=== PATIENT | male | born 1945 ===

== ENCOUNTER → 2017-10-05 | Outpatient (CLI) | payer MEDICARE, BC ==
--- NOTE | 2017-10-05 09:21 | RADIOLOGY REPORT (SQ) ---
EXAM DESCRIPTION: MODESTAIE SWALLOW COMPLETED DATE/TIME: 10/05/2017 8:26 am REASON FOR STUDY: DYSPHAGIA (R13.10) R13.10 DYSPHAGIA, UNSPECIFIED COMPARISON: None. TECHNIQUE: Videofluoroscopic swallowing examination was performed in conjunction with speech patholo gy. Videofluoroscopic imaging was obtained and reviewed and these are the findings: RADIATION DOSE: Fluoro time 1.29 minutes 1 images saved to PACS. LIMITATIONS: None FINDINGS: The patient was brought into the fluoro room and placed upright on a modified barium swall ow chair. The patient was then given multiple consistencies mixed with barium to swallow under live fluoroscopic video guidance. According to the Speech Pathologist there was flash laryngeal penetrati on with thin barium. No aspiration identified. All other consistencies swallowed without incident. Please refer to the speech pathology report for further details. IMPRESSION: FLASH LARYNGEAL PENETRATION WITHOUT ASPIRATION SEEN WITH THIN BARIUMPLEASE SEE SPEECH PA THOLOGIST REPORT FOR OTHER FINDINGS AND RECOMMENDATIONS. COMMENT: None Quality ID [id number]: Final reports for procedures using fluoroscopy that document radiation exposure rossy jeffrey, or exposure time and number of fluorographic images (if radiation exposure indices are not avail able) TECHNICAL DOCUMENTATION: JOB ID: [id number] [employer]- All Rights Reserved Reading location - IP/workstation name: [email or web address] [id number]
--- NOTE | 2017-10-05 09:39 | ST Modified Barium Swallow ---
Recommendation - Recommendations Recommendations: Recommend chin tuck with medications. No skilled intervention indicated. Medical Diagnoses - Medical Diagnoses Medical Diagnosis Description & ICD-10 Code(s): dyaphagia R13.10 Other Medical Diagnoses/Co-Morbidities: per patient report: reflux, arthritis, scoliosis - ICD-10 Tx Diagnosis Coding (1) Acid reflux ICD-10 Code(s): K21.9 - GASTRO-ESOPHAGEAL REFLUX DISEASE WITHOUT ESOPHAGITIS (2) Arthritis ICD-10 Code(s): M19.90 - UNSPECIFIED OSTEOARTHRITIS, UNSPECIFIED SITE ST Modified Barium Swallow - General Date: 10/05/17 Referring Physician: Dr. Boateng Risks/Precautions: None Reason for Referral: dysphagia - History History obtained from: Patient, Spouse -: Medical - Patient reports no recent pneumonias, no CVAs, and no respiratory issues. He does report that he has reflux, for which he takes medication. He reports that he feels that medications "lodge in the back of my throat". He also reports belching, with food particles coming up with this. He also reports increased coughing when he is lying down to sleep at night, even if he is elevated. Medications: unable to give complete list, stated he takes omeprazole. Allergies: none reported - Functional Status Prior Functional Status: INDEPENDENT: feeding - independent Current Functional Limitations: feeding - Subjective Patient/caregiver goal(s): safe swallow Cognitive-Linguistic Function: WNL Speech Intelligibility: WNL Current Nutritional Means: PO Current PO diet: Regular Current symptoms: Coughing, c/o Globus sensation Pain: Patient reports, 0/5 - Objective Assessment: Upright, Left Lateral - Food Trials Used Food trials used: Thin liquids, Pureed, Regular, Other - barium tablet - Oral-Motor Skills Dentition: Partial, Dentures-Upper - Assessment Oral prep: Normal Labial closure: Adequate Leakage: None Mastication: Adequate Oral stage: Normal for this Procedure - Pharyngeal Stage Initiation of Pharyngeal Stage Reflex: Normal Decreased laryngeal elevation: No Reduced Velopharyngeal Closure: no Reduced pressure generation: Yes reduced tongue-based retraction: No Pre-swallow pooling in valleculae: None Pre-Swallow pooling in pyriforms: None Reduced Thyro-Hyoid approximation: No Reduced epiglottic excursion: No Multiple Swallows with: Cleared w/ Liquid Assist Post-swallow residulas vallecular: Mild Post-Swallow residuals in pyriforms: Mild Reduced Cricopharyngeal opening: No - Fall Risk Assessment Medications/Conditions that increase fall risks include: Antidepressants, sedatives, anti-arrhythmic, diuretic, benzodiazipenes, neuroleptics. BP regulation problems, cardiac problems, balance or gait deficits, neurological problems. Fall Risk Actions Taken: No action needed - Behavioral Observations During evaluation process patient: was pleasant, was cooperative, able to answer questions - Treatment / Educational Needs: Treatment/Education Needs: Treatment consisted of patient education on the role of the Speech Pathologist. Patient's plan of care and golas were communicated as well as scheduling and attendance policies. Recommendations for initial home program were shared. Patient demonstrated understanding and verbalized agreement. - Impression/Summary Laryngeal Penetration: Yes, Flash Consistency: Thin Tracheal Aspiration: no Compesatory strategies: liquid wash, chin tuck with medications Patient presents with: Pharyngeal stage dysph., Mild-Moderate Risk of Aspiration: Mild Risk of nutritional compromise: None Evaluation and Findings: Patient presents with functional swallowing mechanism for all textures. Residue seen post swallow for solid trials, cleared with liquid wash. Some penetration of thin liquids seen, but redirected easily. Barium tablet trialed as patient complains of medications "getting stuck", tablet moved through pharynx with no difficulty. Recommended that patient use alternating bites and sips to clear residue, to trial chin tuck with medications , and reflux/aspiration precautions. - Recommendations Solid diet recommendations: Regular Liquid Diet Modification: Thin Pt/Family education and followup with MD: Yes Dysphagia therapy with DIRECT MARKETING MANAGER: no Reflux Precautions: Taught to Patient, Taught to Family Recommended techniques: Alternate Bites/Sips, Chin Tuck to Swallow - for medications Information, Precautions and Recommendations: Patient (Written), Patient (Verbal ), Family Member (Written), Family Member (Verbal) - Plan of Care Strategies to optimize patient understanding include:: ongoing assessment of educational needs, implementation of educational strategies, and re-education. - - -: Thank you for the opportunity to work with this patient and his/her family. Should you have any questions about this patient's plan or progress, I can be reached at [phone]. Charge G Code? - - -: Yes ST F.L. Impairment Category - Rationale Based On Rationale Based On: Func. Asses. Tool Results - Swallowing Current G8996: CI 1-19% Impaired Goal G8997: CI 1-19% Impaired Discharge G8998: CI 1-19% Impaired
== END ==
LOC: RAD 07:23
PROVIDERS: ATTEND Internal Medicine Gastroenterology
DX: R13.10 Dysphagia, unspecified (principal); K21.9 Gastro-esophageal reflux disease without esophagitis; M19.90 Unspecified osteoarthritis, unspecified site
CPT/HCPCS: 74230; 92611; G8996; G8997; G8998